=== PATIENT | female | born 1960 | race Caucasian/White ===

== ENCOUNTER 2016-08-06 11:27 | Emergency (ER) | payer OTHER ==
[~2016-08-06] VITALS: Ht 172.7 cm; Wt 113.4 kg
[~2016-08-06 11:27] MED LIST: MOTRIN800 MG PO; PERCOCET 325 MG1 TA2 PO
[2016-08-06 11:35] VITALS: BP 124/76
--- NOTE | 2016-08-06 12:09 | ED NECK/BACK PAIN COMPLAINT ---
History of Present Illness General Chief Complaint: Low Back Pain/Injury Stated Complaint: LBP Source: patient Exam Limitations: no limitations Vital Signs & Intake/Output Vital Signs & Intake/Output Vital Signs Date Time Temp Pulse Resp B/P Pulse O2 O2 Flow FiO2 Ox Delivery Rate 08/06 1243 97 Room Air 08/06 1135 98.1 88 18 124/76 100 Room Air Allergies Coded Allergies: MDX - Amoxicillin (AMOXICILLIN) (Mild, NAUSEA 07/20/14) Reconcile Medications Cyclobenzaprine HCl 10 MG TABLET 1 TAB PO QPM PRN MUSCLE RELAXOR Hydrocodone/Acetaminophen (Vicodin 5-300 MG Tablet) 5 MG-300 MG TABLET 1 TAB PO BID PRN PAIN DO NOT OPERATE MOTOR VEHICLES WHILE TAKING THIS MEDICATION Meloxicam (Mobic) 15 MG TABLET 1 TAB PO DAILY PRN PAIN/INFLAMMATION Triage Note: PT TO ED FOR LOW BACK PAIN, REPORTS SHE WAS MOVING BOXES ON SUNDAY NIGHT AND STARTED TO HAVE MUSCULAR PAIN SINCE THEN. TRIED ALEVE, HOT/COLD AT HOME WITH MINIMAL PAIN. REPORTS SLIGHT IMPROVEMENT WITH LIDOCAINE PATCH. DENIES ANY LOSS B/B. Triage Nurses Notes Reviewed? yes Onset: Gradual Duration: constant Timing: recent history Location: paraspinous muscles Radiation: none Method of Injury: unknown Loss of Consciousness: no loss of consciousness HPI: Patient is a 55-year-old female who presents emergency and that on Sunday 6 days ago patient was moving heavy boxes where she had a gradual onset of pain that evening in which the pain has been persistent for the past 5 days where it is worse with lumbar spine movements and better initially with rest lidocaine and ibuprofen. Patient denies any extremity paresthesia weakness or pain. Denies any abdominal pain. (TEREZA LIRA) Past History Travel History Traveled to [place] past 21 day No Medical History Any Pertinent Medical History? none Neurological: NONE EENT: NONE Cardiovascular: NONE Respiratory: NONE Gastrointestinal: NONE Hepatic: NONE Renal: NONE Musculoskeletal: NONE Psychiatric: NONE Endocrine: NONE Blood Disorders: NONE Cancer(s): NONE Surgical History Surgical History: non-contributory Psychosocial History What is your primary language Welsh Tobacco Use: Current Daily Use Daily Tobacco Use Amount/Type: => 5 Cigarettes daily ETOH Use: denies use Illicit Drug Use: denies illicit drug use Family History Hx Contributory? No (TEREZA LIRA) Review of Systems Review of Systems Constitutional: Reports: no symptoms. Eyes: Reports: no symptoms. Ears, Nose, Throat, Mouth: Reports: no symptoms. Respiratory: Reports: no symptoms. Cardiovascular: Reports: no symptoms. Gastrointestinal/Abdominal: Reports: no symptoms. Musculoskeletal: Reports: see HPI, back pain, muscle pain, muscle stiffness. Skin: Reports: no symptoms. Neurological/Psychological: Reports: no symptoms. All Other Systems: Reviewed and Negative (TEREZA LIRA) Physical Exam Physical Exam General Appearance: no apparent distress, alert, comfortable Neck: normal inspection, supple, full range of motion Comments: Well-developed well-nourished person in no acute distress HEENT: Normal EENT exam, Neck: Supple, no lymphadenopathy, normal range of motion without pain or tenderness Back: No central spinous tenderness, normal inspection, Bilateral paralumbar muscular point tenderness, decreased active range of motion noted Cardiovascular: Regular rate and rhythms no murmurs rubs or gallops, normal JVP Respiratory: Chest nontender. No respiratory distress.breath sounds clear to auscultation bilaterally Abdomen: Soft, nontender nondistended, no appreciable organomegaly. Normal bowel sounds. No ascites Extremity: No edema, no calf tenderness to palpation, normal and equal pulses. Bilateral lower extremity myotomes dermatomes intact Neuro: Alert oriented x3, motor sensory normal, Skin: No appreciable rash on exposed skin, skin is warm and dry. Psych: Mood and affect is normal, memory and judgment is normal. (TEREZA LIRA) Progress Differential Diagnosis: C spine injury, carotid dissection, cauda equina syn, herniated disc, myofascial strain, pyelo/UTI, sciatica, spinal cord inj, thoracic outlet syn, T/L spine injury, ureterolithiasis Plan of Care: Due to history of present illness and exam findings patient has suspicion of lumbar strain Patient's lower extremity neurovascular exam was intact patient and normal steady gait and discharge (TEREZA LIRA) Departure Departure Disposition: HOME OR SELF CARE Condition: Stable Clinical Impression Primary Impression: Low back strain Referrals: GEOVANNI BRENNAN,BIBIANA Rios (PCP/Family) Additional Instructions: As discussed begin icing the area directly 20 minutes every 2 hours. Begin the prescription of meloxicam for pain and inflammation. Begin the prescription of cyclobenzaprine for muscle relaxation and a prescription of Vicodin for breakthrough pain relief. Activity as tolerated. If no better and 5 days follow-up with your doctor. If symptoms worsen return to emergency room. Prescriptions are waiting at [facility] pharmacy. Departure Forms: Customer Survey General Discharge Information Prescriptions: Current Visit Scripts Meloxicam (Mobic) 1 TAB PO DAILY PRN PAIN/INFLAMMATION #15 TAB Cyclobenzaprine HCl 1 TAB PO QPM PRN MUSCLE RELAXOR #7 TAB Hydrocodone/Acetaminophen (Vicodin 5-300 MG Tablet) 1 TAB PO BID PRN PAIN #6 TAB DO NOT OPERATE MOTOR VEHICLES WHILE TAKING THIS MEDICATION (KATHLEEN VEE,TEREZA) PA/[employer] Co-Sign Statement Statement: ED Attending supervision documentation- [] I saw and evaluated the patient. I have also reviewed all the pertinent lab results and diagnostic results. I agree with the findings and the plan of care as documented in the PA's/[employer]'s documentation. [X] I have reviewed the ED Record and agree with the PA's/[employer]'s documentation. [] Additions or exceptions (if any) to the PAs/[employer]'s note and plan are summarized below: [] (ROSI BRENNAN,FLORA Varma)
[2016-08-06] MEDS ORDERED: VICODIN 5-3001 EACH PO (12:23)
[2016-08-06] MEDS ORDERED: CYCLOBENZAPRINE10 M1 PO (12:23)
[2016-08-06] MEDS ORDERED: MOBIC15 M1 PO (12:23)
== END 2016-08-06 12:53 ==
LOC: ERH 11:27
DX: S39.012A Strain of muscle, fascia and tendon of lower back, initial encounter (principal); X50.0XXA Overexertion from strenuous movement or load, initial encounter; Y93.89 Activity, other specified; Y92.9 Unspecified place or not applicable